=== PATIENT | female | born 1995 | race Caucasian/White ===

== ENCOUNTER 2020-10-23 11:38 | Inpatient (IN) ==
[2020-10-23] MEDS ORDERED: SODIUM CHLORIDE 0.9% 1,000 ML IV STA (12:15)
[2020-10-23] MEDS ORDERED: HYDROmorphone 2 MG/1 ML VIAL IV STA ×2 (12:15→17:33)
[2020-10-23] MEDS ORDERED: ONDANSETRON 4 MG/2 ML VIAL IV STA (12:15)
[2020-10-23 12:23] LABS: Basophils # 0.1 10*3/uL (0.0-0.2); Basophils % 0.5 % (0.0-0.8); Eosinophils # 0.2 10*3/uL (0.0-0.87); Eosinophils % 1.4 % (0.00-10.9); Hematocrit 40.9 VOL% (35.7-47.0); Hemoglobin 17.6 GM/DL (12.0-16.0); Immature Granulocytes % 0.6 %; Immature Granulocytes Absolute 0.07 #; Lymphocytes # 3.7 10*3/uL (1.4-4.0); Lymphocytes % 32.9 % (21.3-54.2); Mean Platelet Volume 10.7 FL (9.6-12.0); Neutrophils % 59.6 % (38.7-73.9); Platelet Count 259 T/CUMM (130-400); Red Cell Distribution Width 12.7 % (9.3-17.3); White Blood Count 11.2 T/CUMM (4-12)
[2020-10-23 12:53] LABS: Bacteria,Urine Occasional /HPF (Few); Bilirubin,Urine Negative (Negative); Blood, Urine Small mg/dL (Negative); Glucose,Urine (UA) >=500 mg/dL (Negative); Hyaline Casts,Urine 10 /LPF (0-3); Ketones,Urine 80 mg/dL (Negative); Mucus,Urine Few /LPF (Occasional); Nitrite,Urine Positive (Negative); Protein,Urine 100 MG/DL; RBC,Urine <1 /HPF (0-4); Squamous Epithelial Cell,Urine Moderate /HPF (0-10); Urine Appearance Slightly Hazy (Clear); Urine Color Yellow (Yellow); Urine Specific Gravity 1.028 (1.001-1.035); Urine Urobilinogen < 2.0 EU/DL (0.2-1.0)
[2020-10-23 13:18] LABS: Lymphocytes 34 % (20-55); Segmented Neutrophils 62 % (50-85); Total Cells Counted 100
[2020-10-23 13:22] LABS: Platelet Estimate Adequate
[2020-10-23] MEDS ORDERED: KETOROLAC 30 MG/1 ML VIAL IV STA (14:28)
[2020-10-23] MEDS ORDERED: PROMETHAZINE 25 MG TABLET PO STA (16:00)
[2020-10-23 16:35] LABS: Albumin 3.3 G/DL (3.4-5.0); Bilirubin,Total 0.4 MG/DL (0.20-1.00); Osmolality,Calculated 271.7 MOS/KG (273-304); Potassium 5.5 MMOL/L (3.5-5.1)
[2020-10-23] MEDS ORDERED: HYDROmorphone 2 MG/1 ML VIAL IM STA (17:29)
[2020-10-23] MEDS ORDERED: PROMETHAZINE INJ 25 MG in SODIUM CHLORIDE 0.9% 50 ML IV STA (17:32)
[2020-10-23] MEDS ORDERED: PROMETHAZINE INJ 25 MG in SODIUM CHLORIDE 0.9% 50 ML IV PRN (17:47)
[2020-10-23 18:27] LABS: Total Protein 7.2 G/DL (6.4-8.2)
[2020-10-23 18:29] LABS: Risk Ratio 15.71
[2020-10-23] MEDS: SODIUM CHLORIDE 0.9% 1,000 ML IV SCH (19:08)
[2020-10-23] MEDS: CIPROFLOXACIN INJ 400 MG/200 ML PREMIX IV SCH (19:09)
[2020-10-23] MEDS: HYDROmorphone 2 MG/1 ML VIAL IV PRN (20:46)
[2020-10-23] MEDS: INSULIN REGULAR 100 UNIT/ML SUBCUT SCH (20:49)
[2020-10-23] MEDS ORDERED: INSULIN GLARGINE 100 UNIT/ML SUBCUT SCH (21:00)
[2020-10-24] MEDS: SODIUM CHLORIDE 0.9% 1,000 ML IV SCH ×4 (02:03→17:32)
[2020-10-24] MEDS: HYDROmorphone 2 MG/1 ML VIAL IV PRN ×4 (03:10→21:03)
[2020-10-24] MEDS: CIPROFLOXACIN INJ 400 MG/200 ML PREMIX IV SCH (05:54)
[2020-10-24 06:02] LABS: Osmolality,Calculated 264.3 MOS/KG (273-304); Potassium 3.7 MMOL/L (3.5-5.1); Thyroid Stimulating Hormone 0.96 uIU/ml (0.358-3.74)
[2020-10-24 06:16] LABS: Risk Ratio 19.43
[2020-10-24 06:28] LABS: Basophils % 0.3 % (0.0-0.8); Eosinophils # 0.1 10*3/uL (0.0-0.87); Eosinophils % 0.7 % (0.00-10.9); Hematocrit 41.7 VOL% (35.7-47.0); Immature Granulocytes % 0.3 %; Immature Granulocytes Absolute 0.02 #; Lymphocytes # 0.9 10*3/uL (1.4-4.0); Lymphocytes % 12.7 % (21.3-54.2); Mean Corpuscular HGB Conc 33.1 GM/DL (32-36); Mean Corpuscular Volume 90.5 FL (87-102); Mean Platelet Volume 11.1 FL (9.6-12.0); Monocytes % 7.5 % (1.7-12.7); Neutrophils % 78.5 % (38.7-73.9); Platelet Count 263 T/CUMM (130-400); Red Blood Count 4.61 MC/CUMM (3.8-5.5); Red Cell Distribution Width 13.4 % (9.3-17.3)
[2020-10-24 06:34] LABS: White Blood Count 6.8 T/CUMM (4-12)
[2020-10-24 06:35] LABS: Hemoglobin 13.8 GM/DL (12.0-16.0)
[2020-10-24 06:40] LABS: Band Neutrophils 10 % (0-10); Lymphocytes 15 % (20-55); Platelet Estimate Adequate; Segmented Neutrophils 66 % (50-85); Total Cells Counted 100
[2020-10-24] MEDS ORDERED: INSULIN GLARGINE 100 UNIT/ML SUBCUT ONE (06:45)
[2020-10-24] MEDS: INSULIN REGULAR 100 UNIT/ML SUBCUT SCH (07:05)
[2020-10-24 07:56] LABS: Estimated Glom Filtration Rate 71 ML/MIN
[2020-10-24 07:57] LABS: Carbon Dioxide 10 MMOL/L (21-32); Sodium 121 MMOL/L (136-145)
[2020-10-24 07:59] LABS: Glucose 585 MG/DL (74-106)
[2020-10-24] MEDS ORDERED: MAGNESIUM SULF RIDER 4 GM/100 ML PREMIX IV PRN ×2 (08:35→08:45)
[2020-10-24] MEDS ORDERED: LACTATED RINGERS 2,000 ML IV ONE (08:40)
[2020-10-24] MEDS ORDERED: MAGNESIUM SULF RIDER 2 GM/50 ML PREMIX IV PRN (08:45)
[2020-10-24] MEDS ORDERED: SODIUM BICARB INJ 100 MEQ in STERILE WATER INJ 400 ML IV PRN (08:45)
[2020-10-24] MEDS ORDERED: SODIUM CHLORIDE 0.9% 1,000 ML IV ONE (08:45)
[2020-10-24] MEDS ORDERED: INSULIN REGULAR 100 UNIT/ML IV ONE (08:45)
[2020-10-24] MEDS ORDERED: SODIUM PHOSPHATE INJ 16.4 MMOL in SODIUM CHLORIDE 0.9% 250 ML IV PRN (08:45)
[2020-10-24] MEDS ORDERED: DEXTROSE 50% 25 GM/50 ML VIAL IV PRN ×2 (08:45)
[2020-10-24] MEDS ORDERED: ONDANSETRON 4 MG/2 ML VIAL ONE (08:49)
[2020-10-24] MEDS: ONDANSETRON 4 MG/2 ML VIAL IV PRN (08:57)
[2020-10-24 09:13] LABS: Blood Urea Nitrogen 11 MG/DL (7-18); Carbon Dioxide 11 MMOL/L (21-32); Estimated Glom Filtration Rate 85 ML/MIN; Osmolality,Calculated 266.3 MOS/KG (273-304); Potassium 3.7 MMOL/L (3.5-5.1)
[2020-10-24 09:15] LABS: Glucose 596 MG/DL (74-106); Sodium 119 MMOL/L (136-145)
[2020-10-24 09:31] LABS: ABG PCO2 32.7 MM HG (35-48); ABG PH 7.284 (7.35-7.45)
[2020-10-24] MEDS: MAGNESIUM SULF RIDER 2 GM/50 ML PREMIX IV PRN ×2 (10:00→11:47)
[2020-10-24] MEDS ORDERED: SODIUM CHLORIDE 0.9% 1,000 ML IV SCH ×2 (10:00→14:00)
[2020-10-24 10:04] LABS: Bilirubin,Urine Negative (Negative); Blood, Urine Large mg/dL (Negative); Glucose,Urine (UA) >=500 mg/dL (Negative); Granular Casts,Urine 7 /LPF (0-1); Hyaline Casts,Urine 4 /LPF (0-3); Ketones,Urine 80 mg/dL (Negative); Mucus,Urine Occasional /LPF (Occasional); Nitrite,Urine Negative (Negative); Protein,Urine 100 MG/DL; RBC,Urine 13 /HPF (0-4); Squamous Epithelial Cell,Urine Occasional /HPF (0-10); Urine Appearance CLOUDY (Clear); Urine Color Yellow (Yellow); Urine Specific Gravity 1.027 (1.001-1.035); Urine Urobilinogen < 2.0 EU/DL (0.2-1.0)
[2020-10-24 10:26] LABS: Estimated Glom Filtration Rate 79 ML/MIN
[2020-10-24 10:27] LABS: Blood Urea Nitrogen 11 MG/DL (7-18); Carbon Dioxide 10 MMOL/L (21-32); Glucose 498 MG/DL (74-106); Osmolality,Calculated 269.6 MOS/KG (273-304); Potassium 3.4 MMOL/L (3.5-5.1); Sodium 124 MMOL/L (136-145)
[2020-10-24 10:28] LABS: Calcium < 5.0 MG/DL (8.5-10.1)
[2020-10-24] MEDS ORDERED: CALCIUM GLUCONATE 2,000 MG in SODIUM CHLORIDE 0.9% 100 ML IV ONE ×3 (10:30→20:10)
[2020-10-24] MEDS: INSULIN REGULAR DRIP 100 ML IV SCH (10:58)
[2020-10-24] MEDS: KETOROLAC 30 MG/1 ML VIAL IV PRN ×2 (11:54→18:43)
[2020-10-24 13:57] LABS: Osmolality,Calculated 263.2 MOS/KG (273-304); Potassium 3.1 MMOL/L (3.5-5.1)
[2020-10-24] MEDS: POTASSIUM CHLORIDE RIDER 10 MEQ/100 ML PREMIX IV PRN ×4 (14:00→17:08)
[2020-10-24 14:03] LABS: Calcium 5.5 MG/DL (8.5-10.1)
[2020-10-24] MEDS: gemfibroziL 600 MG TABLET PO SCH ×2 (14:47→20:42)
[2020-10-24] MEDS ORDERED: POTASSIUM PHOSPHATE 30 MMOL in SODIUM CHLORIDE 0.9% 250 ML IV ONE (15:00)
[2020-10-24] MEDS ORDERED: LACTATED RINGERS 1,000 ML IV ONE (17:25)
[2020-10-24] MEDS ORDERED: diphenhydrAMINE CAP 25 MG CAPSULE PO PRN (17:29)
[2020-10-24 17:48] LABS: Osmolality,Calculated 260.2 MOS/KG (273-304); Potassium 4.2 MMOL/L (3.5-5.1)
[2020-10-24 18:04] LABS: Calcium 5.7 MG/DL (8.5-10.1)
[2020-10-24] MEDS: DEXTROSE 5% NACL 0.9% 1,000 ML IV SCH (18:45)
[2020-10-24 22:16] LABS: Blood Urea Nitrogen 6 MG/DL (7-18); Carbon Dioxide 19 MMOL/L (21-32); Estimated Glom Filtration Rate 147 ML/MIN; Glucose 251 MG/DL (74-106); Osmolality,Calculated 265.8 MOS/KG (273-304); Potassium 4.1 MMOL/L (3.5-5.1); Sodium 130 MMOL/L (136-145)
[2020-10-24 22:19] LABS: Calcium < 5.0 MG/DL (8.5-10.1)
[2020-10-25] MEDS: KETOROLAC 30 MG/1 ML VIAL IV PRN ×3 (00:18→23:19)
[2020-10-25] MEDS: DEXTROSE 5% NACL 0.9% 1,000 ML IV SCH ×3 (03:22→18:27)
[2020-10-25] MEDS: HYDROmorphone 2 MG/1 ML VIAL IV PRN ×2 (03:22→10:15)
[2020-10-25 03:54] LABS: Blood Urea Nitrogen 7 MG/DL (7-18); Carbon Dioxide 20 MMOL/L (21-32); Estimated Glom Filtration Rate 134 ML/MIN; Glucose 187 MG/DL (74-106); Osmolality,Calculated 264.7 MOS/KG (273-304); Potassium 3.5 MMOL/L (3.5-5.1); Sodium 131 MMOL/L (136-145)
[2020-10-25 04:00] LABS: Calcium < 5.0 MG/DL (8.5-10.1)
[2020-10-25] MEDS: INSULIN REGULAR DRIP 100 ML IV SCH ×2 (04:49→10:24)
[2020-10-25 05:01] LABS: Basophils % 0.3 % (0.0-0.8); Eosinophils # 0.2 10*3/uL (0.0-0.87); Eosinophils % 2.8 % (0.00-10.9); Hematocrit 31.4 VOL% (35.7-47.0); Immature Granulocytes % 0.2 %; Immature Granulocytes Absolute 0.01 #; Lymphocytes # 0.9 10*3/uL (1.4-4.0); Lymphocytes % 15.4 % (21.3-54.2); Mean Corpuscular HGB Conc 35.7 GM/DL (32-36); Mean Platelet Volume 10.5 FL (9.6-12.0); Monocytes % 4.8 % (1.7-12.7); Neutrophils % 76.5 % (38.7-73.9); Red Cell Distribution Width 13.8 % (9.3-17.3); White Blood Count 5.8 T/CUMM (4-12)
[2020-10-25 05:05] LABS: Hemoglobin 11.2 GM/DL (12.0-16.0); Platelet Count 205 T/CUMM (130-400); Red Blood Count 3.49 MC/CUMM (3.8-5.5)
[2020-10-25 05:11] LABS: Band Neutrophils 9 % (0-10); Eosinophils 2 % (0-10); Hypochromasia Slight; Lymphocytes 12 % (20-55); Microcytosis Slight; Platelet Estimate Adequate; Segmented Neutrophils 72 % (50-85); Total Cells Counted 100
[2020-10-25] MEDS: POTASSIUM CHLORIDE RIDER 10 MEQ/100 ML PREMIX IV PRN (06:40)
[2020-10-25 07:13] LABS: Blood Urea Nitrogen 6 MG/DL (7-18); Carbon Dioxide 19 MMOL/L (21-32); Estimated Glom Filtration Rate 134 ML/MIN; Glucose 171 MG/DL (74-106); Osmolality,Calculated 269.2 MOS/KG (273-304); Potassium 3.5 MMOL/L (3.5-5.1); Sodium 134 MMOL/L (136-145)
[2020-10-25 07:16] LABS: Calcium < 5.0 MG/DL (8.5-10.1)
[2020-10-25] MEDS ORDERED: CALCIUM GLUCONATE 2,000 MG in SODIUM CHLORIDE 0.9% 100 ML IV ONE (08:30)
[2020-10-25] MEDS: gemfibroziL 600 MG TABLET PO SCH ×2 (08:41→21:36)
[2020-10-25] MEDS: CALCIUM GLUCONATE 2,000 MG in SODIUM CHLORIDE 0.9% 100 ML IV SCH ×8 (08:48→22:09)
[2020-10-25 09:04] LABS: Calcium < 5.0 MG/DL (8.5-10.1)
[2020-10-25] MEDS ORDERED: POTASSIUM PHOSPHATE 40 MMOL in SODIUM CHLORIDE 0.9% 250 ML IV ONE (11:00)
[2020-10-25] MEDS: ONDANSETRON 4 MG/2 ML VIAL IV PRN (12:34)
[2020-10-25 18:06] LABS: Osmolality,Calculated 265.4 MOS/KG (273-304); Potassium 4.5 MMOL/L (3.5-5.1)
[2020-10-25] MEDS: INSULIN LISPRO 100 UNIT/ML SUBCUT SCH (21:45)
[2020-10-26] MEDS: INSULIN LISPRO 100 UNIT/ML SUBCUT SCH ×2 (01:58→05:56)
[2020-10-26 05:18] LABS: Basophils % 0.3 % (0.0-0.8); Eosinophils # 0.2 10*3/uL (0.0-0.87); Eosinophils % 2.9 % (0.00-10.9); Hematocrit 26.5 VOL% (35.7-47.0); Immature Granulocytes % 0.5 %; Immature Granulocytes Absolute 0.03 #; Lymphocytes % 16.2 % (21.3-54.2); Mean Corpuscular HGB Conc 34.7 GM/DL (32-36); Mean Corpuscular Volume 89.2 FL (87-102); Mean Platelet Volume 10.7 FL (9.6-12.0); Monocytes % 3.8 % (1.7-12.7); Neutrophils % 76.3 % (38.7-73.9); Platelet Count 182 T/CUMM (130-400); Red Blood Count 2.97 MC/CUMM (3.8-5.5); Red Cell Distribution Width 13.8 % (9.3-17.3); White Blood Count 6.1 T/CUMM (4-12)
[2020-10-26 05:35] LABS: Hemoglobin 9.2 GM/DL (12.0-16.0)
[2020-10-26 05:47] LABS: Band Neutrophils 1 % (0-10); Eosinophils 2 % (0-10); Lymphocytes 13 % (20-55); Platelet Estimate Adequate; Segmented Neutrophils 80 % (50-85); Total Cells Counted 100
[2020-10-26 05:48] LABS: Hypochromasia Slight; Microcytosis Slight
[2020-10-26 05:49] LABS: Calcium 7.5 MG/DL (8.5-10.1); Osmolality,Calculated 270.2 MOS/KG (273-304); Potassium 3.8 MMOL/L (3.5-5.1)
[2020-10-26] MEDS: gemfibroziL 600 MG TABLET PO SCH (08:48)
[2020-10-26] MEDS ORDERED: CALCIUM CARBONATE CHEW 500 MG TABLET PO SCH ×2 (09:00)
[2020-10-26] MEDS ORDERED: POTASSIUM PHOS/SOD PHOS POWDER 250 MG PACK PO SCH (09:00)
[2020-10-26] MEDS: KETOROLAC 30 MG/1 ML VIAL IV PRN (09:02)
[2020-10-26 11:26] VITALS: BP 152/101
[2020-10-26] MEDS ORDERED: INSULIN LISPRO 100 UNIT/ML SUBCUT SCH (11:30)
== END 2020-10-26 11:49 | disposition home or self-care (01) | DRG 439 ==
LOC: N.ED 11:38 → SUATTDRO 17:36 → N.EDINP 18:13 → N.5E 18:15 → N.ICU 10-24 08:40 → N.5E 10-25 20:42
PROVIDERS: ADMIT Internal Medicine Geriatric Medicine; ATTEND Internal Medicine Geriatric Medicine

== ENCOUNTER 2022-02-07 10:12 | Inpatient (IN) ==
[2022-02-07] MEDS ORDERED: HYDROmorphone 1 MG/1 ML SYRINGE ONE (10:45)
[2022-02-07] MEDS ORDERED: ONDANSETRON 4 MG/2 ML VIAL ONE (10:45)
[2022-02-07] MEDS ORDERED: HYDROmorphone 1 MG/1 ML SYRINGE IV STA ×2 (10:48→12:56)
[2022-02-07] MEDS ORDERED: SODIUM CHLORIDE 0.9% 1,000 ML IV STA (10:48)
[2022-02-07] MEDS ORDERED: ONDANSETRON 4 MG/2 ML VIAL IV STA ×2 (10:48→12:56)
[2022-02-07 11:41] LABS: Carbon Dioxide 26 MMOL/L (21-32); Chloride 82 MMOL/L (98-107); Glucose 465 MG/DL (74-106); Potassium 3.7 MMOL/L (3.5-5.1)
[2022-02-07 11:44] LABS: Sodium 115 MMOL/L (136-145)
[2022-02-07 12:05] LABS: Basophils % 0.3 % (0.0-0.8); Eosinophils # 0.1 10*3/uL (0.0-0.87); Eosinophils % 0.7 % (0.00-10.9); Hematocrit 38.2 VOL% (35.7-47.0); Hemoglobin 13.5 GM/DL (12.0-16.0); Immature Granulocytes % 0.6 %; Immature Granulocytes Absolute 0.06 #; Lymphocytes # 2.4 10*3/uL (1.4-4.0); Lymphocytes % 23.5 % (21.3-54.2); Mean Corpuscular HGB Conc 35.3 GM/DL (32-36); Monocytes # 0.5 10*3/uL (0.11-0.8); Monocytes % 5.1 % (1.7-12.7); NRBC # 0.02 10*3/uL; Neutrophils % 69.8 % (38.7-73.9); Platelet Count 116 T/CUMM (130-400); Red Blood Count 4.29 MC/CUMM (3.8-5.5); Red Cell Distribution Width 12.6 % (9.3-17.3)
[2022-02-07 12:07] LABS: White Blood Count 10.2 T/CUMM (4-12)
[2022-02-07 12:12] LABS: Alanine Aminotransferase 27 U/L (13-56); Aspartate Amino Transferase 31 U/L (0-37); Blood Urea Nitrogen 9 MG/DL (7-18); Osmolality,Calculated 250.9 MOS/KG (273-304)
[2022-02-07 12:13] LABS: Alkaline Phosphatase 123 U/L (45-117)
[2022-02-07] MEDS ORDERED: INSULIN REGULAR 100 UNIT/ML IV STA (12:52)
[2022-02-07] MEDS: HEPARIN 5,000 UNIT/1 ML VIAL SUBCUT SCH ×2 (13:27→20:50)
[2022-02-07] MEDS: SODIUM CHLORIDE 0.9% 1,000 ML IV SCH ×2 (13:29→22:29)
[2022-02-07 13:44] LABS: Cholesterol 455 MG/DL (50-200); HDL Cholesterol 53 MG/DL (40-60); Risk Ratio 8.58; Triglycerides > 4000 MG/DL (2-150)
[2022-02-07] MEDS: ONDANSETRON 4 MG/2 ML VIAL IV PRN ×2 (14:34→20:50)
[2022-02-07] MEDS: MORPHINE 2 MG/1 ML SYRINGE IV PRN ×2 (14:34→18:40)
[2022-02-07] MEDS: OMEGA 3 ACID ETHYL ESTERS 1 GM CAPSULE PO SCH (16:21)
[2022-02-07] MEDS: INSULIN LISPRO 100 UNIT/ML SUBCUT SCH (18:41)
[2022-02-07] MEDS: gemfibroziL 600 MG TABLET PO SCH (18:41)
[2022-02-07] MEDS: HYDROmorphone 1 MG/1 ML SYRINGE IV PRN (20:50)
[2022-02-08] MEDS: INSULIN LISPRO 100 UNIT/ML SUBCUT SCH ×6 (00:52→22:08)
[2022-02-08] MEDS: HYDROmorphone 1 MG/1 ML SYRINGE IV PRN ×4 (00:55→18:29)
[2022-02-08] MEDS: ONDANSETRON 4 MG/2 ML VIAL IV PRN ×4 (00:58→18:29)
[2022-02-08 02:25] LABS: Basophils % 0.2 % (0.0-0.8); Eosinophils % 0.4 % (0.00-10.9); Hematocrit 37.3 VOL% (35.7-47.0); Hemoglobin 16.6 GM/DL (12.0-16.0); Immature Granulocytes % 0.4 %; Immature Granulocytes Absolute 0.04 #; Lymphocytes # 1.9 10*3/uL (1.4-4.0); Lymphocytes % 17.9 % (21.3-54.2); Mean Corpuscular HGB Conc 44.5 GM/DL (32-36); Mean Corpuscular Volume 91.4 FL (87-102); Mean Platelet Volume 10.8 FL (9.6-12.0); Monocytes # 0.7 10*3/uL (0.11-0.8); Monocytes % 7.1 % (1.7-12.7); Platelet Count 212 T/CUMM (130-400); Red Blood Count 4.08 MC/CUMM (3.8-5.5); Red Cell Distribution Width 12.8 % (9.3-17.3); White Blood Count 10.5 T/CUMM (4-12)
[2022-02-08 03:15] LABS: Albumin 2.7 G/DL (3.4-5.0); Alkaline Phosphatase 91 U/L (45-117); Chloride 101 MMOL/L (98-107); Potassium 3.6 MMOL/L (3.5-5.1); Sodium 129 MMOL/L (136-145)
[2022-02-08 03:16] LABS: Carbon Dioxide 14 MMOL/L (21-32); Osmolality,Calculated 265.9 MOS/KG (273-304)
[2022-02-08 03:17] LABS: Bilirubin,Direct < 0.100 MG/DL (0.0-0.20); Bilirubin,Indirect 0.5 MG/DL (0.0-1.0)
[2022-02-08 03:51] LABS: Alanine Aminotransferase 20 U/L (13-56); Aspartate Amino Transferase 18 U/L (0-37)
[2022-02-08 03:52] LABS: Blood Urea Nitrogen 4 MG/DL (7-18)
[2022-02-08 03:54] LABS: Glucose 305 MG/DL (74-106)
[2022-02-08] MEDS: HEPARIN 5,000 UNIT/1 ML VIAL SUBCUT SCH ×3 (06:04→22:03)
[2022-02-08] MEDS: SODIUM CHLORIDE 0.9% 1,000 ML IV SCH ×3 (06:11→23:32)
[2022-02-08] MEDS ORDERED: MAGNESIUM SULF RIDER 2 GM/50 ML PREMIX IV ONE (07:51)
[2022-02-08] MEDS ORDERED: SODIUM CHLORIDE 0.9% 500 ML IV ONE (07:53)
[2022-02-08] MEDS ORDERED: SODIUM BICARBONATE 50 MEQ/50 ML VIAL IV ONE (07:53)
[2022-02-08] MEDS: gemfibroziL 600 MG TABLET PO SCH ×2 (08:38→18:48)
[2022-02-08] MEDS ORDERED: SODIUM BICARB INJ 50 MEQ in IV BAG 1 EACH IV ONE (09:00)
[2022-02-08 09:18] LABS: Carbon Dioxide 22 MMOL/L (21-32); Chloride 96 MMOL/L (98-107); Osmolality,Calculated 269.4 MOS/KG (273-304); Sodium 129 MMOL/L (136-145)
[2022-02-08 09:20] LABS: Glucose 350 MG/DL (74-106)
[2022-02-08 09:41] LABS: Arterial Base Excess iSTAT -3 MMOL/L (-2.5-2.5); Arterial Bicarbonate iSTAT 21.2 MMOL/L (20-26); Arterial O2 Saturation iSTAT 99 % (95-100); Arterial PCO2 iSTAT 35 MM HG (35-48); Arterial PO2 iSTAT 132 MM HG (80-95); Arterial Total CO2 iSTAT 22 MMO/L (23-27)
[2022-02-08] MEDS ORDERED: SODIUM BICARB INJ 100 MEQ in STERILE WATER INJ 400 ML IV PRN (10:20)
[2022-02-08] MEDS ORDERED: SODIUM PHOSPHATE INJ 16.2 MMOL in SODIUM CHLORIDE 0.9% 250 ML IV PRN (10:20)
[2022-02-08] MEDS ORDERED: MAGNESIUM SULF RIDER 4 GM/100 ML PREMIX IV PRN (10:22)
[2022-02-08] MEDS ORDERED: MAGNESIUM SULF RIDER 2 GM/50 ML PREMIX IV PRN (10:22)
[2022-02-08] MEDS ORDERED: POTASSIUM CHLORIDE RIDER 10 MEQ/100 ML PREMIX IV PRN (10:22)
[2022-02-08] MEDS ORDERED: DEXTROSE 10% 250 ML BAG IV PRN ×2 (10:28→10:29)
[2022-02-08] MEDS: OMEGA 3 ACID ETHYL ESTERS 1 GM CAPSULE PO SCH (10:57)
[2022-02-08] MEDS: SODIUM CHLOR 0.9% KCL 20 MEQ 20 MEQ/1,000 ML BAG IV SCH ×2 (12:29→21:29)
[2022-02-08] MEDS: POTASSIUM CHLORIDE RIDER 10 MEQ/100 ML PREMIX IV SCH ×2 (12:30→13:45)
[2022-02-08 13:28] LABS: Carbon Dioxide 23 MMOL/L (21-32); Chloride 98 MMOL/L (98-107); Glucose 326 MG/DL (74-106); Osmolality,Calculated 266.9 MOS/KG (273-304); Sodium 129 MMOL/L (136-145)
[2022-02-08 13:42] LABS: Calcium < 5.0 MG/DL (8.5-10.1)
[2022-02-08] MEDS ORDERED: CALCIUM GLUCONATE RIDER 2,000 MG/100 ML PREMIX IV ONE (14:00)
[2022-02-08 14:01] LABS: Hyaline Casts,Urine 5 /LPF (0-3); Mucus,Urine Few /LPF (Occasional); Squamous Epithelial Cell,Urine Occasional /HPF (0-10)
[2022-02-08 14:09] LABS: Glucose,Urine (UA) 100 mg/dL (Negative); Protein,Urine 30 mg/dL (Negative); Urine Appearance Cloudy (Clear); Urine Color Amber (Yellow); Urine Specific Gravity > 1.030 (1.001-1.035); Urine pH 5.5 (4.5-8.0)
[2022-02-08 14:10] LABS: Bilirubin,Urine Small mg/dL (Negative); Blood, Urine Large mg/dL (Negative); Ketones,Urine >160 mg/dL (Negative); Nitrite,Urine Negative (Negative); Urine Urobilinogen 0.2 eU/dL (<2.0)
[2022-02-08] MEDS: LEVOFLOXACIN INJ 750 MG/150 ML PREMIX IV SCH (15:24)
[2022-02-08 17:54] LABS: Calcium 6.1 MG/DL (8.5-10.1); Osmolality,Calculated 255.5 MOS/KG (273-304); Potassium 3.5 MMOL/L (3.5-5.1)
[2022-02-08 22:02] LABS: Calcium 6.3 MG/DL (8.5-10.1); Osmolality,Calculated 269.5 MOS/KG (273-304); Potassium 3.5 MMOL/L (3.5-5.1)
[2022-02-09] MEDS: ONDANSETRON 4 MG/2 ML VIAL IV PRN ×3 (01:10→19:10)
[2022-02-09] MEDS: HYDROmorphone 1 MG/1 ML SYRINGE IV PRN ×4 (01:13→19:10)
[2022-02-09 01:55] LABS: Calcium 6.2 MG/DL (8.5-10.1); Osmolality,Calculated 261.9 MOS/KG (273-304); Potassium 3.5 MMOL/L (3.5-5.1)
[2022-02-09] MEDS: SODIUM CHLORIDE 0.9% 1,000 ML IV SCH ×3 (02:20→16:54)
[2022-02-09] MEDS: INSULIN LISPRO 100 UNIT/ML SUBCUT SCH ×6 (03:14→21:50)
[2022-02-09] MEDS: HEPARIN 5,000 UNIT/1 ML VIAL SUBCUT SCH ×3 (05:49→22:09)
[2022-02-09] MEDS: SODIUM CHLOR 0.9% KCL 20 MEQ 20 MEQ/1,000 ML BAG IV SCH ×2 (05:54→14:31)
[2022-02-09 06:58] LABS: Phosphorous 0.7 MG/DL (2.5-4.9)
[2022-02-09 07:08] LABS: Basophils % 0.3 % (0.0-0.8); Calcium 6.4 MG/DL (8.5-10.1); Eosinophils # 0.1 10*3/uL (0.0-0.87); Hematocrit 30.2 VOL% (35.7-47.0); Hemoglobin 11.2 GM/DL (12.0-16.0); Immature Granulocytes % 0.3 %; Immature Granulocytes Absolute 0.02 #; Lymphocytes # 1.3 10*3/uL (1.4-4.0); Lymphocytes % 18.2 % (21.3-54.2); Mean Corpuscular HGB Conc 37.1 GM/DL (32-36); Mean Corpuscular Volume 90.1 FL (87-102); Mean Platelet Volume 11.3 FL (9.6-12.0); Monocytes # 0.5 10*3/uL (0.11-0.8); Monocytes % 7.1 % (1.7-12.7); Neutrophils % 73.1 % (38.7-73.9); Osmolality,Calculated 268.4 MOS/KG (273-304); Platelet Count 162 T/CUMM (130-400); Potassium 3.5 MMOL/L (3.5-5.1); Red Blood Count 3.35 MC/CUMM (3.8-5.5); Red Cell Distribution Width 13.2 % (9.3-17.3); White Blood Count 7.1 T/CUMM (4-12)
[2022-02-09 07:19] LABS: Band Neutrophils 16 % (0-10); Lymphocytes 17 % (20-55); Platelet Estimate Normal; Total Cells Counted 100
[2022-02-09 07:20] LABS: Anisocytosis Slight
[2022-02-09] MEDS ORDERED: CALCIUM GLUCONATE RIDER 1,000 MG/50 ML PREMIX IV ONE (09:00)
[2022-02-09] MEDS: OMEGA 3 ACID ETHYL ESTERS 1 GM CAPSULE PO SCH (09:26)
[2022-02-09] MEDS: gemfibroziL 600 MG TABLET PO SCH ×2 (09:27→16:39)
[2022-02-09 10:36] LABS: Carbon Dioxide 20 MMOL/L (21-32); Chloride 102 MMOL/L (98-107); Glucose 229 MG/DL (74-106); Osmolality,Calculated 271.2 MOS/KG (273-304); Potassium 3.4 MMOL/L (3.5-5.1); Sodium 134 MMOL/L (136-145)
[2022-02-09 11:05] LABS: Calcium < 5.0 MG/DL (8.5-10.1)
[2022-02-09] MEDS ORDERED: POTASSIUM CHLORIDE 20 MEQ TABLET PO ONE (11:23)
[2022-02-09] MEDS ORDERED: SODIUM CHLORIDE 0.9% 250 ML IV ONE (11:27)
[2022-02-09] MEDS ORDERED: CALCIUM GLUCONATE RIDER 2,000 MG/100 ML PREMIX IV ONE (12:00)
[2022-02-09] MEDS: LEVOFLOXACIN INJ 750 MG/150 ML PREMIX IV SCH (16:41)
[2022-02-09] MEDS ORDERED: INSULIN GLARGINE 100 UNIT/ML SUBCUT SCH (21:00)
[2022-02-10] MEDS: HYDROmorphone 1 MG/1 ML SYRINGE IV PRN ×5 (00:10→22:37)
[2022-02-10] MEDS: ONDANSETRON 4 MG/2 ML VIAL IV PRN ×5 (00:12→22:40)
[2022-02-10] MEDS: SODIUM CHLOR 0.9% KCL 20 MEQ 20 MEQ/1,000 ML BAG IV SCH ×2 (00:15→10:53)
[2022-02-10] MEDS: SODIUM CHLORIDE 0.9% 1,000 ML IV SCH ×2 (00:40→10:53)
[2022-02-10] MEDS: HEPARIN 5,000 UNIT/1 ML VIAL SUBCUT SCH ×3 (05:22→22:03)
[2022-02-10 06:29] LABS: Basophils % 0.3 % (0.0-0.8); Eosinophils # 0.1 10*3/uL (0.0-0.87); Eosinophils % 1.3 % (0.00-10.9); Hematocrit 27.7 VOL% (35.7-47.0); Hemoglobin 9.9 GM/DL (12.0-16.0); Immature Granulocytes % 0.4 %; Immature Granulocytes Absolute 0.03 #; Lymphocytes # 1.5 10*3/uL (1.4-4.0); Lymphocytes % 21.6 % (21.3-54.2); Mean Corpuscular HGB Conc 35.7 GM/DL (32-36); Mean Corpuscular Volume 92.6 FL (87-102); Mean Platelet Volume 10.9 FL (9.6-12.0); Monocytes # 0.4 10*3/uL (0.11-0.8); Monocytes % 5.2 % (1.7-12.7); Neutrophils % 71.2 % (38.7-73.9); Platelet Count 156 T/CUMM (130-400); Red Blood Count 2.99 MC/CUMM (3.8-5.5); Red Cell Distribution Width 13.7 % (9.3-17.3)
[2022-02-10 07:03] LABS: Blood Urea Nitrogen < 4 MG/DL (7-18); Calcium 7.4 MG/DL (8.5-10.1); Carbon Dioxide 19 MMOL/L (21-32); Chloride 99 MMOL/L (98-107); Glucose 230 MG/DL (74-106); Osmolality,Calculated 260.5 MOS/KG (273-304); Potassium 4.4 MMOL/L (3.5-5.1); Sodium 128 MMOL/L (136-145)
[2022-02-10] MEDS: OMEGA 3 ACID ETHYL ESTERS 1 GM CAPSULE PO SCH (08:47)
[2022-02-10] MEDS: gemfibroziL 600 MG TABLET PO SCH ×2 (08:47→17:32)
[2022-02-10] MEDS: INSULIN LISPRO 100 UNIT/ML SUBCUT SCH ×4 (08:48→22:31)
[2022-02-10] MEDS ORDERED: MIDAZOLAM 2 MG/2 ML VIAL ONE ×4 (10:24→10:25)
[2022-02-10] MEDS ORDERED: fentaNYL 100 MCG/2 ML VIAL ONE ×2 (10:25)
[2022-02-10] MEDS: INSULIN NPH 100 UNIT/ML SUBCUT SCH ×2 (11:58→17:33)
[2022-02-10] MEDS: LEVOFLOXACIN INJ 750 MG/150 ML PREMIX IV SCH (15:30)
[2022-02-10] MEDS: SODIUM CHLORIDE/POTASSIUM CHLORIDE TABLET PO SCH ×2 (15:30→22:00)
[2022-02-10] MEDS ORDERED: ROSUVASTATIN 20 MG TABLET PO SCH (21:00)
[2022-02-10] MEDS ORDERED: ATORVASTATIN 40 MG TABLET PO SCH (21:00)
[2022-02-11] MEDS: ONDANSETRON 4 MG/2 ML VIAL IV PRN (05:24)
[2022-02-11] MEDS: HYDROmorphone 1 MG/1 ML SYRINGE IV PRN (05:30)
[2022-02-11] MEDS: HEPARIN 5,000 UNIT/1 ML VIAL SUBCUT SCH (05:31)
[2022-02-11 05:40] LABS: Basophils % 0.1 % (0.0-0.8); Eosinophils # 0.1 10*3/uL (0.0-0.87); Eosinophils % 1.2 % (0.00-10.9); Hematocrit 31.3 VOL% (35.7-47.0); Hemoglobin 10.9 GM/DL (12.0-16.0); Immature Granulocytes % 0.4 %; Immature Granulocytes Absolute 0.03 #; Lymphocytes # 0.9 10*3/uL (1.4-4.0); Lymphocytes % 13.3 % (21.3-54.2); Mean Corpuscular HGB Conc 34.8 GM/DL (32-36); Mean Platelet Volume 10.3 FL (9.6-12.0); Monocytes # 0.5 10*3/uL (0.11-0.8); Monocytes % 7.9 % (1.7-12.7); Neutrophils % 77.1 % (38.7-73.9); Platelet Count 217 T/CUMM (130-400); Red Blood Count 3.44 MC/CUMM (3.8-5.5); Red Cell Distribution Width 13.2 % (9.3-17.3); White Blood Count 6.7 T/CUMM (4-12)
[2022-02-11 06:10] LABS: Calcium 8.8 MG/DL (8.5-10.1); Osmolality,Calculated 261.9 MOS/KG (273-304); Potassium 3.6 MMOL/L (3.5-5.1)
[2022-02-11] MEDS: gemfibroziL 600 MG TABLET PO SCH (08:47)
[2022-02-11] MEDS: OMEGA 3 ACID ETHYL ESTERS 1 GM CAPSULE PO SCH (08:47)
[2022-02-11] MEDS: SODIUM CHLORIDE/POTASSIUM CHLORIDE TABLET PO SCH (08:47)
[2022-02-11] MEDS: INSULIN NPH 100 UNIT/ML SUBCUT SCH (08:49)
[2022-02-11] MEDS: INSULIN LISPRO 100 UNIT/ML SUBCUT SCH ×2 (08:54→12:11)
[2022-02-11 11:55] VITALS: BP 125/77
== END 2022-02-11 12:30 | disposition home or self-care (01) | DRG 438 ==
LOC: N.ED 10:12 → N.EDINP 12:59 → SUATTDRO 12:59 → N.3E 13:27
PROVIDERS: ADMIT Internal Medicine; ATTEND Hospitalist